=== PATIENT | female | born 1965 | race African-American/Black ===

== ENCOUNTER 2020-10-16 05:16 | Inpatient (IN) ==
[2020-10-16 05:56] LABS: Basophils # 0.2 10*3/uL (0.0-0.2); Basophils % 0.8 % (0.0-0.8); Eosinophils % 0.1 % (0.00-10.9); Hematocrit 29.1 VOL% (35.7-47.0); Hemoglobin 9.1 GM/DL (12.0-16.0); Immature Granulocytes % 14.1 %; Immature Granulocytes Absolute 2.98 #; Lymphocytes # 0.9 10*3/uL (1.4-4.0); Lymphocytes % 4.2 % (21.3-54.2); Mean Corpuscular HGB Conc 31.3 GM/DL (32-36); Mean Corpuscular Volume 75.8 FL (87-102); Mean Platelet Volume 9.5 FL (9.6-12.0); Monocytes % 0.9 % (1.7-12.7); Neutrophils % 79.9 % (38.7-73.9); Platelet Count 423 T/CUMM (130-400); Red Blood Count 3.84 MC/CUMM (3.8-5.5); Red Cell Distribution Width 13.8 % (9.3-17.3); White Blood Count 21.1 T/CUMM (4-12)
[2020-10-16 06:12] LABS: Albumin 2.6 G/DL (3.4-5.0); Bilirubin,Total 1.3 MG/DL (0.2-1.0); Calcium 8.4 MG/DL (8.5-10.1); Osmolality,Calculated 275.7 MOS/KG (273-304); Potassium 3.9 MMOL/L (3.5-5.1); Total Protein 5.9 G/DL (6.4-8.3)
[2020-10-16] MEDS ORDERED: PIPERACILLIN/TAZOBACTAM 3,375 MG in SODIUM CHLORIDE 0.9% 100 ML IV STA (06:21)
[2020-10-16] MEDS ORDERED: VANCOMYCIN INJ 1,250 MG in SODIUM CHLORIDE 0.9% 250 ML IV STA (06:21)
[2020-10-16 07:11] LABS: Band Neutrophils 14 % (0-10); Lymphocytes 8 % (20-55); Platelet Estimate Normal; Segmented Neutrophils 76 % (50-85); Total Cells Counted 100
[2020-10-16 07:12] LABS: Anisocytosis 1+; Hypochromasia Slight
[2020-10-16] MEDS ORDERED: VANCOMYCIN INJ 1,250 MG in SODIUM CHLORIDE 0.9% 250 ML IV ONE (07:45)
[2020-10-16] MEDS ORDERED: GLUCAGON 1 MG VIAL IM PRN (08:25)
[2020-10-16] MEDS ORDERED: ACETAMINOPHEN 325 MG TABLET PO PRN (08:25)
[2020-10-16] MEDS ORDERED: SIMETHICONE CHEW 125 MG TABLET PO PRN (08:25)
[2020-10-16] MEDS ORDERED: DOCUSATE SODIUM 100 MG CAPSULE PO PRN (08:25)
[2020-10-16] MEDS ORDERED: DEXTROSE 50% 25 GM/50 ML VIAL IV PRN (08:25)
[2020-10-16] MEDS ORDERED: ONDANSETRON 4 MG/2 ML VIAL IV PRN (08:25)
[2020-10-16] MEDS ORDERED: PROCHLORPERAZINE 10 MG TABLET PO PRN (08:30)
[2020-10-16] MEDS: SODIUM CHLORIDE 0.9% 1,000 ML IV SCH ×2 (10:35→17:42)
[2020-10-16] MEDS: amLODIPine 5 MG TABLET PO SCH (10:35)
[2020-10-16] MEDS: PANTOPRAZOLE 40 MG TABLET PO SCH (10:35)
[2020-10-16] MEDS: MORPHINE 4 MG/1 ML VIAL IV PRN ×3 (12:24→21:08)
[2020-10-16] MEDS: ONDANSETRON 4 MG/2 ML VIAL IV PRN (12:24)
[2020-10-16] MEDS: ENOXAPARIN 40 MG/0.4 ML SYRINGE SUBCUT SCH (12:24)
[2020-10-16] MEDS: PIPERACILLIN/TAZOBACTAM 3,375 MG in SODIUM CHLORIDE 0.9% 100 ML IV SCH ×2 (13:00→21:09)
[2020-10-16] MEDS: VANCOMYCIN INJ 1,250 MG in SODIUM CHLORIDE 0.9% 250 ML IV SCH (20:07)
[2020-10-17] MEDS: MORPHINE 4 MG/1 ML VIAL IV PRN ×4 (00:29→20:47)
[2020-10-17] MEDS: PIPERACILLIN/TAZOBACTAM 3,375 MG in SODIUM CHLORIDE 0.9% 100 ML IV SCH ×3 (05:48→16:47)
[2020-10-17 07:40] LABS: Basophils # 0.1 10*3/uL (0.0-0.2); Basophils % 1.1 % (0.0-0.8); Eosinophils # 0.1 10*3/uL (0.0-0.87); Eosinophils % 1.6 % (0.00-10.9); Hematocrit 25.4 VOL% (35.7-47.0); Hemoglobin 7.6 GM/DL (12.0-16.0); Immature Granulocytes % 9.6 %; Lymphocytes # 0.8 10*3/uL (1.4-4.0); Mean Corpuscular HGB Conc 29.9 GM/DL (32-36); Mean Corpuscular Volume 78.6 FL (87-102); Monocytes % 1.2 % (1.7-12.7); Neutrophils % 76.5 % (38.7-73.9); Platelet Count 357 T/CUMM (130-400); Red Blood Count 3.23 MC/CUMM (3.8-5.5); Red Cell Distribution Width 14.2 % (9.3-17.3); White Blood Count 8.3 T/CUMM (4-12)
[2020-10-17 08:10] LABS: Albumin 2.1 G/DL (3.4-5.0); Bilirubin,Total 0.6 MG/DL (0.2-1.0); Calcium 7.8 MG/DL (8.5-10.1); Osmolality,Calculated 279.3 MOS/KG (273-304); Risk Ratio 7.25; Total Protein 5.5 G/DL (6.4-8.3); VLDL CHOLESTEROL 25.6 MG/DL
[2020-10-17 08:17] LABS: Anisocytosis 1+; Band Neutrophils 1 % (0-10); Eosinophils 4 % (0-10); Hypochromasia 1+; Lymphocytes 20 % (20-55); Macrocytosis Slight; Platelet Estimate Normal; Segmented Neutrophils 75 % (50-85); Total Cells Counted 100
[2020-10-17 08:18] LABS: Smudge Cells Few
[2020-10-17] MEDS ORDERED: SODIUM CHLORIDE 0.9% 1,000 ML IV PRN (08:18)
[2020-10-17] MEDS: amLODIPine 5 MG TABLET PO SCH (08:32)
[2020-10-17] MEDS: FLUCONAZOLE 100 MG TABLET PO SCH (08:35)
[2020-10-17] MEDS: PANTOPRAZOLE 40 MG TABLET PO SCH (08:35)
[2020-10-17] MEDS: VANCOMYCIN INJ 1,250 MG in SODIUM CHLORIDE 0.9% 250 ML IV SCH ×2 (09:54→20:51)
[2020-10-17] MEDS: ENOXAPARIN 40 MG/0.4 ML SYRINGE SUBCUT SCH (13:07)
[2020-10-17] MEDS: SODIUM CHLORIDE 0.9% 1,000 ML IV SCH (20:16)
[2020-10-17] MEDS: ONDANSETRON 4 MG/2 ML VIAL IV PRN (20:44)
[2020-10-18] MEDS: SODIUM CHLORIDE 0.9% 1,000 ML IV SCH ×3 (00:41→14:28)
[2020-10-18] MEDS: PIPERACILLIN/TAZOBACTAM 3,375 MG in SODIUM CHLORIDE 0.9% 100 ML IV SCH ×3 (01:01→17:26)
[2020-10-18] MEDS: MORPHINE 4 MG/1 ML VIAL IV PRN ×3 (04:12→20:32)
[2020-10-18 04:19] LABS: Basophils % 1.2 % (0.0-0.8); Eosinophils # 0.2 10*3/uL (0.0-0.87); Eosinophils % 6.2 % (0.00-10.9); Hemoglobin 9.6 GM/DL (12.0-16.0); Immature Granulocytes % 1.6 %; Immature Granulocytes Absolute 0.04 #; Lymphocytes # 0.8 10*3/uL (1.4-4.0); Lymphocytes % 34.6 % (21.3-54.2); Mean Corpuscular Volume 79.5 FL (87-102); Mean Platelet Volume 9.1 FL (9.6-12.0); Monocytes % 2.5 % (1.7-12.7); Neutrophils % 53.9 % (38.7-73.9); Platelet Count 293 T/CUMM (130-400); Red Cell Distribution Width 14.9 % (9.3-17.3); White Blood Count 2.4 T/CUMM (4-12)
[2020-10-18 04:56] LABS: Albumin 2.4 G/DL (3.4-5.0); Bilirubin,Total 1.1 MG/DL (0.2-1.0); Calcium 7.9 MG/DL (8.5-10.1); Osmolality,Calculated 274.5 MOS/KG (273-304); Potassium 4.2 MMOL/L (3.5-5.1); Total Protein 5.7 G/DL (6.4-8.3)
[2020-10-18 05:13] LABS: Band Neutrophils 1 % (0-10); Eosinophils 11 % (0-10); Lymphocytes 38 % (20-55); Platelet Estimate Adequate; Segmented Neutrophils 46 % (50-85); Total Cells Counted 100
[2020-10-18 05:14] LABS: Atypical Lymphocytes Few; Hypochromasia 1+; Microcytosis 1+
[2020-10-18] MEDS: VANCOMYCIN INJ 1,250 MG in SODIUM CHLORIDE 0.9% 250 ML IV SCH (09:07)
[2020-10-18] MEDS: PANTOPRAZOLE 40 MG TABLET PO SCH (09:09)
[2020-10-18] MEDS: FLUCONAZOLE 100 MG TABLET PO SCH (09:09)
[2020-10-18] MEDS: FILGRASTIM-SNDZ 300 MCG/0.5 ML SYRINGE SUBCUT SCH (09:09)
[2020-10-18] MEDS: amLODIPine 5 MG TABLET PO SCH (09:09)
[2020-10-18] MEDS: ENOXAPARIN 40 MG/0.4 ML SYRINGE SUBCUT SCH (14:11)
[2020-10-18] MEDS: VANCOMYCIN INJ 1,500 MG in SODIUM CHLORIDE 0.9% 500 ML IV SCH (20:29)
[2020-10-18] MEDS: DOCUSATE SODIUM 100 MG CAPSULE PO SCH (20:33)
[2020-10-19] MEDS: MORPHINE 4 MG/1 ML VIAL IV PRN ×4 (01:19→18:47)
[2020-10-19] MEDS: PIPERACILLIN/TAZOBACTAM 3,375 MG in SODIUM CHLORIDE 0.9% 100 ML IV SCH ×2 (01:21→08:27)
[2020-10-19] MEDS: SODIUM CHLORIDE 0.9% 1,000 ML IV SCH ×2 (06:43→18:51)
[2020-10-19 08:15] LABS: Basophils % 1.4 % (0.0-0.8); Eosinophils # 0.2 10*3/uL (0.0-0.87); Eosinophils % 12.3 % (0.00-10.9); Hematocrit 31.1 VOL% (35.7-47.0); Hemoglobin 9.1 GM/DL (12.0-16.0); Immature Granulocytes % 1.4 %; Immature Granulocytes Absolute 0.02 #; Lymphocytes # 0.7 10*3/uL (1.4-4.0); Lymphocytes % 47.1 % (21.3-54.2); Mean Corpuscular HGB Conc 29.3 GM/DL (32-36); Mean Corpuscular Volume 83.6 FL (87-102); Mean Platelet Volume 9.7 FL (9.6-12.0); Monocytes % 7.2 % (1.7-12.7); Neutrophils % 30.6 % (38.7-73.9); Platelet Count 287 T/CUMM (130-400); Red Blood Count 3.72 MC/CUMM (3.8-5.5); Red Cell Distribution Width 14.9 % (9.3-17.3); White Blood Count 1.4 T/CUMM (4-12)
[2020-10-19] MEDS: FILGRASTIM-SNDZ 300 MCG/0.5 ML SYRINGE SUBCUT SCH (08:28)
[2020-10-19] MEDS: PANTOPRAZOLE 40 MG TABLET PO SCH (08:29)
[2020-10-19] MEDS: amLODIPine 5 MG TABLET PO SCH (08:29)
[2020-10-19] MEDS: FLUCONAZOLE 100 MG TABLET PO SCH (08:29)
[2020-10-19] MEDS: DOCUSATE SODIUM 100 MG CAPSULE PO SCH ×2 (08:29→20:46)
[2020-10-19] MEDS ORDERED: fentaNYL 12 MCG/HR PATCH TRANSDERM SCH (09:00)
[2020-10-19 09:21] LABS: Band Neutrophils 6 % (0-10); Eosinophils 14 % (0-10); Lymphocytes 42 % (20-55); Segmented Neutrophils 29 % (50-85); Total Cells Counted 100
[2020-10-19 09:22] LABS: Anisocytosis 1+; Burr Cells Few; Ovalocytes Few; Platelet Estimate Normal
[2020-10-19 09:23] LABS: Macrocytosis Slight
[2020-10-19] MEDS: VANCOMYCIN INJ 1,500 MG in SODIUM CHLORIDE 0.9% 500 ML IV SCH (09:26)
[2020-10-19] MEDS: ENOXAPARIN 40 MG/0.4 ML SYRINGE SUBCUT SCH (12:39)
[2020-10-19] MEDS: SULFAMETHOX/TRIMETHOPRIM 800-160 MG TABLET PO SCH (20:46)
[2020-10-20] MEDS: MORPHINE 4 MG/1 ML VIAL IV PRN ×4 (01:39→20:25)
[2020-10-20 05:29] LABS: Basophils % 1.6 % (0.0-0.8); Eosinophils # 0.1 10*3/uL (0.0-0.87); Eosinophils % 5.2 % (0.00-10.9); Hematocrit 30.4 VOL% (35.7-47.0); Hemoglobin 9.2 GM/DL (12.0-16.0); Immature Granulocytes % 14.6 %; Immature Granulocytes Absolute 0.28 #; Lymphocytes # 0.7 10*3/uL (1.4-4.0); Mean Corpuscular HGB Conc 30.3 GM/DL (32-36); Mean Corpuscular Volume 81.1 FL (87-102); Mean Platelet Volume 9.3 FL (9.6-12.0); Monocytes % 13.5 % (1.7-12.7); Neutrophils % 28.1 % (38.7-73.9); Platelet Count 272 T/CUMM (130-400); Red Blood Count 3.75 MC/CUMM (3.8-5.5); Red Cell Distribution Width 14.7 % (9.3-17.3); White Blood Count 1.9 T/CUMM (4-12)
[2020-10-20 05:54] LABS: Albumin 2.3 G/DL (3.4-5.0); Bilirubin,Total 0.8 MG/DL (0.2-1.0); Calcium 8.4 MG/DL (8.5-10.1); Potassium 3.7 MMOL/L (3.5-5.1); Total Protein 5.9 G/DL (6.4-8.3)
[2020-10-20 06:00] LABS: Atypical Lymphocytes Few; Band Neutrophils 27 % (0-10); Eosinophils 8 % (0-10); Lymphocytes 46 % (20-55); Platelet Estimate Normal; Segmented Neutrophils 8 % (50-85); Total Cells Counted 100
[2020-10-20 06:01] LABS: Burr Cells Few; Hypochromasia Slight; Ovalocytes Few; Target Cells Few
[2020-10-20] MEDS: SODIUM CHLORIDE 0.9% 1,000 ML IV SCH (08:05)
[2020-10-20] MEDS: FILGRASTIM-SNDZ 300 MCG/0.5 ML SYRINGE SUBCUT SCH (08:08)
[2020-10-20] MEDS: amLODIPine 5 MG TABLET PO SCH (08:10)
[2020-10-20] MEDS: FLUCONAZOLE 100 MG TABLET PO SCH (08:10)
[2020-10-20] MEDS: PANTOPRAZOLE 40 MG TABLET PO SCH (08:10)
[2020-10-20] MEDS: DOCUSATE SODIUM 100 MG CAPSULE PO SCH ×2 (08:10→20:25)
[2020-10-20] MEDS: SULFAMETHOX/TRIMETHOPRIM 800-160 MG TABLET PO SCH ×2 (08:10→20:25)
[2020-10-20] MEDS: ENOXAPARIN 40 MG/0.4 ML SYRINGE SUBCUT SCH (13:21)
[2020-10-20] MEDS ORDERED: SKIN HEALING OINT (AQUAPHOR) 50 GM TUBE TOP PRN (14:45)
[2020-10-20] MEDS: MENTHOL/ZINC OXIDE OINT 71 GM JAR TOP SCH ×2 (15:54→20:26)
[2020-10-21] MEDS: MORPHINE 4 MG/1 ML VIAL IV PRN (00:05)
[2020-10-21 05:55] LABS: Basophils # 0.1 10*3/uL (0.0-0.2); Basophils % 1.6 % (0.0-0.8); Eosinophils # 0.1 10*3/uL (0.0-0.87); Eosinophils % 1.6 % (0.00-10.9); Hematocrit 28.7 VOL% (35.7-47.0); Immature Granulocytes % 18.8 %; Immature Granulocytes Absolute 1.19 #; Lymphocytes # 0.8 10*3/uL (1.4-4.0); Lymphocytes % 13.3 % (21.3-54.2); Mean Corpuscular HGB Conc 31.4 GM/DL (32-36); Mean Corpuscular Volume 79.5 FL (87-102); Monocytes % 8.9 % (1.7-12.7); Neutrophils % 55.8 % (38.7-73.9); Platelet Count 266 T/CUMM (130-400); Red Blood Count 3.61 MC/CUMM (3.8-5.5); Red Cell Distribution Width 14.7 % (9.3-17.3); White Blood Count 6.3 T/CUMM (4-12)
[2020-10-21 06:27] LABS: Alanine Aminotransferase 14 U/L (13-56); Albumin 2.2 G/DL (3.4-5.0); Alkaline Phosphatase 90 U/L (45-117); Aspartate Amino Transferase 9 U/L (0-37); Bilirubin,Total < 0.39 MG/DL (0.2-1.0); Blood Urea Nitrogen 4 MG/DL (7-18); Calcium 8.6 MG/DL (8.5-10.1); Carbon Dioxide 27 MMOL/L (21-32); Estimated Glom Filtration Rate 106 ML/MIN; Glucose 77 MG/DL (74-106); Osmolality,Calculated 270.7 MOS/KG (273-304); Potassium 3.6 MMOL/L (3.5-5.1); Sodium 138 MMOL/L (136-145); Total Protein 5.6 G/DL (6.4-8.3)
[2020-10-21 06:31] LABS: Band Neutrophils 7 % (0-10); Eosinophils 1 % (0-10); Lymphocytes 22 % (20-55); Metamyelocytes 3 %; Myelocytes 2 %; Segmented Neutrophils 54 % (50-85); Total Cells Counted 100
[2020-10-21 06:33] LABS: Atypical Lymphocytes Few; Hypochromasia 2+; Platelet Estimate Normal; Target Cells Few
[2020-10-21] MEDS: PANTOPRAZOLE 40 MG TABLET PO SCH (08:31)
[2020-10-21] MEDS: amLODIPine 5 MG TABLET PO SCH (08:31)
[2020-10-21] MEDS: FILGRASTIM-SNDZ 300 MCG/0.5 ML SYRINGE SUBCUT SCH (08:32)
[2020-10-21] MEDS: DOCUSATE SODIUM 100 MG CAPSULE PO SCH (08:32)
[2020-10-21] MEDS: SULFAMETHOX/TRIMETHOPRIM 800-160 MG TABLET PO SCH (08:32)
[2020-10-21] MEDS: MENTHOL/ZINC OXIDE OINT 71 GM JAR TOP SCH (08:36)
[2020-10-21] MEDS: FLUCONAZOLE 100 MG TABLET PO SCH (08:44)
[2020-10-21] MEDS ORDERED: HEPARIN LOCK FLUSH 500 UNIT/5 ML SYRINGE IV ONE (10:54)
[2020-10-21 11:30] VITALS: BP 120/73
== END 2020-10-21 12:30 | disposition home health service (06) | DRG 600 ==
LOC: N.ED 05:16 → SUATTDRO 08:25 → N.EDINP 08:25 → N.4E 09:35
PROVIDERS: ADMIT Internal Medicine; ATTEND Internal Medicine